=== PATIENT | male | born 1980 | race African-American/Black ===

== ENCOUNTER 2016-10-28 10:54 | Emergency (ER) | payer SELFPAY ==
[2016-10-28] MEDS ORDERED: Ibuprofen 800 MG TAB ONE (11:40)
== END 2016-10-28 11:46 | disposition home or self-care (01) ==
LOC: NAV ERS 10:54
DX: M43.6 Torticollis (principal); F17.210 Nicotine dependence, cigarettes, uncomplicated
CPT/HCPCS: 99283

== ENCOUNTER 2017-10-24 09:53 | Emergency (ER) | payer OTHER ==
[2017-10-24] MEDS ORDERED: Lidocaine 1% w/Epinephrine 1:100K 30 ML VIAL ONE (10:50)
[2017-10-24] MEDS ORDERED: Bacitracin Zinc 1 Packet ONE (11:04)
== END 2017-10-24 11:30 | disposition home or self-care (01) ==
LOC: NAV ERS 09:53
DX: L02.416 Cutaneous abscess of left lower limb (principal); L73.9 Follicular disorder, unspecified
CPT/HCPCS: 10060; J2001

== ENCOUNTER 2017-11-27 14:54 | Emergency (ER) | payer OTHER ==
[2017-11-27] MEDS ORDERED: Sulfameth/Trimethoprim DS 800-160mg TAB ONE (15:50)
[2017-11-27] MEDS ORDERED: Naproxen 500 MG TAB ONE (15:50)
--- NOTE | 2017-11-27 15:58 | RAD ---
THREE VIEWS OF THE RIGHT WRIST: INDICATION: Right wrist pain after having wrist slammed in a car door. COMPARISON: None. FINDINGS: Carpal alignment is within normal limits. No definite acute fracture or subluxation is evident. IMPRESSION: No acute osseous abnormality. POS: [facility]
== END 2017-11-27 16:00 | disposition home or self-care (01) ==
LOC: NAV ERS 14:54
DX: S60.211A Contusion of right wrist, initial encounter (principal); L73.9 Follicular disorder, unspecified; Z87.891 Personal history of nicotine dependence; X58.XXXA Exposure to other specified factors, initial encounter

== ENCOUNTER 2020-08-26 08:15 | Emergency (ER) | payer OTHER ==
[2020-08-26] MEDS ORDERED: Lidocaine 1% (PF) 30 ML VIAL ONE (08:46)
== END 2020-08-26 09:13 | disposition home or self-care (01) ==
LOC: NAV ERS 08:15
DX: L02.213 Cutaneous abscess of chest wall (principal); E11.9 Type 2 diabetes mellitus without complications; I10 Essential (primary) hypertension
CPT/HCPCS: 10060; J2001

== ENCOUNTER 2020-08-28 16:36 | Emergency (ER) | payer OTHER, SELFPAY | END 2020-08-28 17:08 | disposition home or self-care (01) | LOC: NAV ERS 16:36 | DX: Z48.817 Encounter for surgical aftercare following surgery on the skin and subcutaneous tissue (principal); E11.9 Type 2 diabetes mellitus without complications; I10 Essential (primary) hypertension | CPT/HCPCS: 99282 ==